=== PATIENT | female | born 1970 | race Caucasian/White ===

== ENCOUNTER 2018-04-25 11:31 | Inpatient (IN) | payer MEDICAID ==
[~2018-04-25] VITALS: Ht 154.9 cm; Wt 110.7 kg
[2018-04-25 11:39] VITALS: BP 126/81
--- NOTE | 2018-04-25 11:44 | NUR ---
pt to chair by triage for further observation. awaiting available bed. notified charge Nabila JETT.
--- NOTE | 2018-04-25 11:53 | NUR ---
PT TO ER BED 11
--- NOTE | 2018-04-25 12:30 | NUR ---
48/ F, bib friend with c/o etoh withdrawal. Last drank yesterday. Patient sts she normally drinks 3 bottles of vodka a day. Shakiness noted. Patient reports being SOB, weakness, breathing is unlabored, respirations shallow, with pain. Denies any cp or auditory/visual hallucinations. Tingling to bl hands and posterior head. Patient has leg pain 8/10 and 10/10 sharp back pain. Vomited blood x2 today, patient reports seeing blood in vomit. Patient aox4, clear speech, steady gait, safety percaution in place.
[2018-04-25] MEDS ORDERED: NACL 0.9% 1,000 ML IV ONE (13:25)
[2018-04-25] MEDS ORDERED: LORazepam 2 MG/ML VIAL IVP ONE (13:25)
[2018-04-25] MEDS ORDERED: ONDANSETRON 4 MG/2 ML VIAL IVP ONE (13:25)
[2018-04-25 13:46] LABS: BASOPHILS # (AUTO) 0.1 K/uL (0.00-0.22); BASOPHILS % (AUTO) 0.9 % (0.0-2.0); EOSINOPHILS # (AUTO) 0.1 K/uL (0-0.4); EOSINOPHILS % (AUTO) 1.2 % (0.0-4.0); HEMATOCRIT 34.6 % (36-48); HEMOGLOBIN 10.9 g/dL (12.0-16.0); LYMPHOCYTES % (AUTO) 15.3 % (20.5-51.1); MEAN CORPUSCULAR HEMOGLOBIN 29 pg (27-31); MEAN CORPUSCULAR HGB CONC 31 g/dL (33-37); MONOCYTES # (AUTO) 0.5 K/uL (0.8-1.0); MONOCYTES % (AUTO) 7.7 % (1.7-9.3); NEUTROPHILS # (AUTO) 4.8 K/uL (1.8-7.7); NEUTROPHILS % (AUTO) 74.9 % (42.2-75.2); PLATELET COUNT (AUTO) 144 K/uL (140-450); RED CELL DISTRIBUTION WIDTH 20.6 % (11.6-13.7); WHITE BLOOD COUNT (AUTO) 6.4 K/uL (4.8-10.8)
[2018-04-25 14:29] LABS: PROTHROMBIN TIME 13.2 secs (10.8-13.4)
[2018-04-25 14:37] LABS: ALBUMIN 2.5 g/dL (3.4-5.0); ANION GAP 10.6 (8-16); CARBON DIOXIDE 31.1 mmol/L (21-32); CREATININE 0.7 mg/dL (0.6-1.3); POTASSIUM 3.7 mmol/L (3.5-5.1); TOTAL BILIRUBIN 1.3 mg/dL (0.0-1.0)
[2018-04-25] MEDS ORDERED: NACL 0.9% 1,000 ML IV SCH (15:15)
[2018-04-25] MEDS ORDERED: DOCUSATE SODIUM 100 MG GELCAP PO PRN (15:15)
[2018-04-25] MEDS ORDERED: ACETAMINOPHEN 325 MG TAB PO PRN (15:15)
[2018-04-25 15:41] LABS: APPEARANCE,URINE CLEAR (CLEAR); BILIRUBIN,URINE NEGATIVE (NEGATIVE); BLOOD, URINE NEGATIVE (NEGATIVE); COLOR,URINE YELLOW (YELLOW); LEUKOCYTE ESTERASE ,URINE NEGATIVE (NEGATIVE); NITRITE, URINE NEGATIVE (NEGATIVE); PH,URINE 8.5 (5.0-9.0); UGLUCOSE NEGATIVE (NEGATIVE)
[2018-04-25 15:42] LABS: RBC,URINE 0-5 (RARE) /HPF (0-5); WBC,URINE 0-5 (RARE) /HPF (0-5)
[2018-04-25 16:14] LABS: BARBITURATE, URINE NEG. ng/ml (NEG <=200); BENZODIAZEPINE, URINE POS. ng/mL (NEG <=200); CANNABINOID, URINE NEG. ng/mL (NEG <=50); COCAINE, URINE NEG. ng/mL (NEG <=300); OPIATE, URINE NEG. ng/mL (NEG <=2000); PHENCYCLIDINE SCREEN,URINE NEG. ng/mL (NEG <=25)
[2018-04-25 16:21] LABS: CHOL/HDL RATIO 2.3 (1-4.5); MAGNESIUM 1.1 mg/dL (1.8-2.4); PHOSPHORUS 3.4 mg/dL (2.5-4.9); THYROID STIMULATING HORMONE 2.4 uIU/mL (0.34-3.74)
--- NOTE | 2018-04-25 16:45 | NUR ---
RECEIVED PT FROM EMERGENCY ROOM NURSE. PT IN STABLE CONDITION. IV INTACT. SAFETY MEASURES IN PLACE. CALL LIGHT AT BEDSIDE. WILL CONTINUE TO MONITOR.
--- NOTE | 2018-04-25 16:45 | NUR ---
Pt report given to RASHMI JETT. Transfer of care at this time.
[2018-04-25] MEDS ORDERED: chlordiazePOXIDE 25 MG CAP PO SCH (17:00)
[2018-04-25] MEDS: HYDROcodone/APAP 5/325 MG 1 TAB TAB PO PRN ×2 (17:09→23:09)
[2018-04-25] MEDS: CYCLOBENZAPRINE 10 MG TAB PO SCH (17:09)
[2018-04-25] MEDS: MAG SULF 2000 MG/WATER PREMIX 50 ML IV SCH ×2 (17:53→20:12)
[2018-04-25] MEDS: LORazepam 1 MG TAB PO SCH ×2 (17:59→23:08)
--- NOTE | 2018-04-25 18:00 | NUR ---
GAVE ORDERED DUE MEDICATIONS. PT TOLERATED WELL. WILL CONTINUE TO MONITOR.
--- NOTE | 2018-04-25 19:20 | NUR ---
GAVE REPORT TO LICENSED MENTAL HEALTH COUNSELOR NURSE FOR CONTINUITY OF CARE. PT IN STABLE CONDITION.
--- NOTE | 2018-04-25 19:21 | NUR ---
REPORT RECEIVED FROM AM NURSE AT BEDSIDE. PT IN STABLE CONDITION. AAOX4. INTRODUCED SELF TO PT. BOARD UPDATED. NO COMPLAINTS OF PAIN. NO SOB. AFEBRILE. IV SITE R FA 22G RUNNING NS@60ML/HR PATENT AND INTACT. SKIN WARM, DRY, AND INTACT WITH NO OPEN WOUNDS. BED LOCKED IN LOW POSITION. CALL HUDSON WITHIN REACH. SAFETY PRECAUTIONS IN PLACE.
[2018-04-25 19:58] VITALS: BP 132/91
[2018-04-25] MEDS: MULTIVITAMIN-12 10 ML, THIAMINE 100 MG, MAGNESIUM SULFATE 50% 2,000 MG, FOLIC ACID 1 MG... IV SCH ×5 (20:00)
--- NOTE | 2018-04-25 20:00 | NUR ---
MAG HUNG AND RUNNING. BANANA BAG HUNG. PT TOLERATING WELL.
[2018-04-25] MEDS: PANTOPRAZOLE 40 MG INJ VIAL IVP SCH (20:33)
--- NOTE | 2018-04-25 20:33 | NUR ---
PROTONIX GIVEN IVP. PT TOLERATED WELL.
[2018-04-25] MEDS ORDERED: LORazepam 1 MG TAB PO SCH (21:00)
--- NOTE | 2018-04-25 23:08 | NUR ---
ATIVAN PO GIVEN. NORCO GIVEN FOR 6/10 PAIN. PT TOLERATED WELL.
[2018-04-26] VITALS: BP 139/88
--- NOTE | 2018-04-26 01:15 | NUR ---
PT HAD COMPLAINTS OF IV LEAKING. TIGHTENED THE IV.
--- NOTE | 2018-04-26 03:30 | NUR ---
PT SLEEPING COMFORTABLY IN BED. NO S/S OF DISTRESS NOTED. RESPIRATIONS EVEN, UNLABORED, AND WNL. WILL CONTINUE TO MONITOR.
--- NOTE | 2018-04-26 04:15 | NUR ---
ADMINISTERED ZOFRAN FOR NAUSEA AND ATIVAN FOR ANXIETY. PT TOLERATED WELL. NO OTHER NEEDS AT THIS TIME. Addendum: 04/26/18 at 1619 by Roula Robins RN ADMINISTERED ZOFRAN FOR NAUSEA AND ATIVAN FOR ANXIETY. PT TOLERATED WELL. NO OTHER NEEDS AT THIS TIME. Addendum: 04/26/18 at 1724 by Roula Robins RN THE 0415 NOTE WAS FOR 1619 AT 04/26/2018. DOCUMENTED AT THE WRONG TIME.
[2018-04-26] MEDS: HYDROcodone/APAP 5/325 MG 1 TAB TAB PO PRN ×2 (05:19→18:05)
[2018-04-26] MEDS: LORazepam 1 MG TAB PO SCH (05:20)
--- NOTE | 2018-04-26 05:20 | NUR ---
ATIVAN AND NORCO GIVEN PO. PT TOLERATED WELL. Addendum: 04/26/18 at 0522 by Dennis Hwang RN 09/11 PAIN.
[2018-04-26 06:26] LABS: HEPATITIS A ANTIBODY IGM Negative (Negative); HEPATITIS B CORE AB TOTAL Negative (Negative); HEPATITIS B SURFACE ANTIBODY Non Reactive (.); HEPATITIS B SURFACE ANTIGEN Negative (Negative)
[2018-04-26 07:15] LABS: CREATININE 0.6 mg/dL (0.6-1.3)
--- NOTE | 2018-04-26 07:19 | NUR ---
REPORT GIVEN TO AM NURSE AT BEDSIDE. PT IN STABLE CONDITION.
--- NOTE | 2018-04-26 07:20 | NUR ---
RECEIVED BEDSIDE REPORT FROM JOHNIE AGUIAR. PT STABLE, AWAKE, AND ALERT. NO SIGNS OF DISTRESS NOTED. DENIES PAIN. NO SEIZURE ACTIVITY NOTED. BED RAILINGS PADDED. NO SWELLING, REDNESS, OR INFLAMMATION NOTED ON IV SITE. PT AWARE OF NPO STATUS. CALL LIGHT WITHIN REACH. BED IN LOW POSITION. SAFETY MEASURES IN PLACE. PLAN OF CARE REVIEWED.
[2018-04-26 07:24] LABS: ANION GAP 6.5 (8-16); CARBON DIOXIDE 31.1 mmol/L (21-32); POTASSIUM 3.6 mmol/L (3.5-5.1)
[2018-04-26 07:35] LABS: BASOPHILS # (AUTO) 0.1 K/uL (0.00-0.22); EOSINOPHILS # (AUTO) 0.3 K/uL (0-0.4); EOSINOPHILS % (AUTO) 5.9 % (0.0-4.0); HEMATOCRIT 30.7 % (36-48); HEMOGLOBIN 9.6 g/dL (12.0-16.0); LYMPHOCYTES # (AUTO) 1.2 K/uL (2.5-16.5); LYMPHOCYTES % (AUTO) 22.8 % (20.5-51.1); MEAN CORPUSCULAR HEMOGLOBIN 29 pg (27-31); MEAN CORPUSCULAR HGB CONC 31 g/dL (33-37); MEAN CORPUSCULAR VOLUME 91.3 fL (80-94); MONOCYTES # (AUTO) 0.4 K/uL (0.8-1.0); MONOCYTES % (AUTO) 7.9 % (1.7-9.3); NEUTROPHILS # (AUTO) 3.2 K/uL (1.8-7.7); NEUTROPHILS % (AUTO) 62.4 % (42.2-75.2); RED BLOOD CELL COUNT(AUTO) 3.36 MIL/uL (4.20-5.40); RED CELL DISTRIBUTION WIDTH 20.5 % (11.6-13.7); WHITE BLOOD COUNT (AUTO) 5.1 K/uL (4.8-10.8)
[2018-04-26 07:43] LABS: PLATELET COUNT (AUTO) 99 K/uL (140-450)
--- NOTE | 2018-04-26 07:45 | NUR ---
DR PLASCENCIA CALLED, PT WILL BE HAVE EGD TODAY, KEEP NPO, OBTAIN CONSENT PER DR PLASCENCIA. WILL UPDATE PT WITH POC.
[2018-04-26 08:00] VITALS: BP 136/97
--- NOTE | 2018-04-26 08:29 | NUR ---
SPOKE WITH DR. PLASCENCIA REGARDING PT'S EGD TODAY. PT HAD ENDOSCOPY IN 2012.
--- NOTE | 2018-04-26 08:36 | NUR ---
PATIENT HAS BEEN SCREENED AND CATEGORIZED HIGH NUTRITION RISK. PATIENT WILL BE SEEN WITHIN 1-2 DAYS OF ADMISSION. 04/26/18-04/27/[address]
[2018-04-26] MEDS: CYCLOBENZAPRINE 10 MG TAB PO SCH ×3 (09:00→18:05)
[2018-04-26] MEDS: FOLIC ACID 1 MG TAB PO SCH (09:00)
[2018-04-26] MEDS: MULTIVITAMIN 1 TAB PO SCH (09:00)
[2018-04-26] MEDS: THIAMINE 100 MG TAB PO SCH (09:00)
[2018-04-26] MEDS: PANTOPRAZOLE 40 MG INJ VIAL IVP SCH ×2 (09:42→20:39)
[2018-04-26] MEDS: OLANZapine 2.5 MG TAB PO SCH (09:43)
[2018-04-26] MEDS: chlordiazePOXIDE 25 MG CAP PO SCH ×2 (09:43→12:57)
--- NOTE | 2018-04-26 09:43 | NUR ---
ADMINISTERED SCHEDULED MEDICATIONS. PT TOLERATED WELL. NO OTHER NEEDS AT THIS TIME.
[2018-04-26] MEDS ORDERED: DEXT 5% /NACL 0.9% 1,000 ML IV SCH (10:05)
--- NOTE | 2018-04-26 10:15 | NUR ---
D/C RIGHT FA IV DUE TO LEAKING. CATHETER TIP INTACT. INSERTED IV ON RIGHT FOREARM 22G, FLUSHES WELL. NO SWELLING, REDNESS, OR INFLAMMATION NOTED ON IV SITE.
[2018-04-26] MEDS ORDERED: fentaNYL 0.05 MG/ML VIAL ONE (10:54)
[2018-04-26] MEDS ORDERED: MIDAZOLAM 2 MG/2 ML VIAL ONE (10:55)
[2018-04-26] MEDS: MIDAZOLAM 2 MG/2 ML VIAL IV ONE ×2 (11:13→11:15)
[2018-04-26] MEDS: fentaNYL 0.05 MG/ML VIAL IVP ONE ×2 (11:14→11:15)
--- NOTE | 2018-04-26 11:45 | NUR ---
PT ARRIVED FROM OR AFTER EGD. PT STABLE, AWAKE, AND ALERT. NO SIGNS OF DISTRESS NOTED.
--- NOTE | 2018-04-26 12:57 | NUR ---
ADMINISTERED SCHEDULED MEDICATIONS. PT TOLERATED WELL. NO OTHER NEEDS AT THIS TIME.
[2018-04-26] MEDS: ONDANSETRON 4 MG/2 ML VIAL IM/IVP PRN (15:59)
[2018-04-26 16:00] VITALS: BP 132/87
[2018-04-26] MEDS: LORazepam 2 MG/ML VIAL IVP PRN ×2 (16:00→20:40)
[2018-04-26] MEDS: NACL 0.9% 1,000 ML IV SCH (16:15)
[2018-04-26] MEDS ORDERED: chlordiazePOXIDE 25 MG CAP PO SCH ×2 (16:15→17:00)
--- NOTE | 2018-04-26 16:19 | NUR ---
ADMINISTERED ZOFRAN FOR NAUSEA AND ATIVAN FOR ANXIETY. PT TOLERATED WELL. NO OTHER NEEDS AT THIS TIME.
--- NOTE | 2018-04-26 17:00 | NUR ---
DR. YEUNG AT THE BEDSIDE.
--- NOTE | 2018-04-26 18:00 | NUR ---
ADMINISTERED SCHEDULED MEDICATIONS AND NORCO FOR BACK PAIN 09/11. PT TOLERATED WELL. NO OTHER NEEDS AT THIS TIME.
--- NOTE | 2018-04-26 19:20 | NUR ---
ENDORSED PT TO JOHNIE MELGOZA FOR CONTINUITY OF CARE. PT STABLE, SLEEPING BUT EASILY AROUSABLE.
--- NOTE | 2018-04-26 19:20 | NUR ---
RECEIVED REPORT FORM DAY SHIFT NURSE AT PT BEDSIDE. PT ASLEEP IN BED BUT EASILY AROUSABLE. PT IS ON RA WITH RESPIRATIONS EVEN AND UNLABORED. IV ACCESS IN R FA 22G WITH IVF RUNNING PER MD ORDERS. IV IS PATENT AND INTACT. PT SKIN IS INTACT. NO C/O PAIN AT THIS TIME. BED IS LOCKED, LOW POSITION WITH SIDE RAILS UP X2. CALL LIGHT IS WITHIN REACH. BOARD UPDATED. WILL CONTINUE TO MONITOR PT.
[2018-04-26] MEDS: MULTIVITAMIN-12 10 ML, THIAMINE 100 MG, MAGNESIUM SULFATE 50% 2,000 MG, FOLIC ACID 1 MG... IV SCH ×5 (19:39)
--- NOTE | 2018-04-26 20:40 | NUR ---
ADMINISTERED SCHEDULED PROTONIX. ATIVAN GIVEN FOR ALCOHOL WITHDRAWAL AND ANXIETY. PT TOLERATED WELL. ALL OTHER NEEDS ARE MET AT THIS TIME. NO SIGNS OR SYMPTOMS OF DISTRESS. WILL CONTINUE TO MONITOR.
[2018-04-27] VITALS: BP 131/86
[2018-04-27] MEDS: NACL 0.9% 1,000 ML IV SCH (02:01)
[2018-04-27] MEDS: HYDROcodone/APAP 5/325 MG 1 TAB TAB PO PRN (02:12)
--- NOTE | 2018-04-27 02:12 | NUR ---
PT C/O PAIN, NORCO GIVEN. ATIVAN GIVEN FOR ALCOHOL WITHDRAWAL AND ANXIETY. PT TOLERATED WELL. NO SIGNS OR SYMPTOMS OF DISTRESS. WILL CONTINUE TO MONITOR.
[2018-04-27] MEDS: LORazepam 2 MG/ML VIAL IVP PRN (02:13)
[2018-04-27 06:18] LABS: BASOPHILS % (AUTO) 0.7 % (0.0-2.0); EOSINOPHILS # (AUTO) 0.3 K/uL (0-0.4); EOSINOPHILS % (AUTO) 5.1 % (0.0-4.0); HEMATOCRIT 28.6 % (36-48); HEMOGLOBIN 9.1 g/dL (12.0-16.0); LYMPHOCYTES # (AUTO) 1.3 K/uL (2.5-16.5); LYMPHOCYTES % (AUTO) 23.7 % (20.5-51.1); MEAN CORPUSCULAR HEMOGLOBIN 29 pg (27-31); MEAN CORPUSCULAR HGB CONC 32 g/dL (33-37); MEAN CORPUSCULAR VOLUME 91.5 fL (80-94); MONOCYTES # (AUTO) 0.5 K/uL (0.8-1.0); MONOCYTES % (AUTO) 8.5 % (1.7-9.3); NEUTROPHILS # (AUTO) 3.3 K/uL (1.8-7.7); PLATELET COUNT (AUTO) 99 K/uL (140-450); RED BLOOD CELL COUNT(AUTO) 3.13 MIL/uL (4.20-5.40); RED CELL DISTRIBUTION WIDTH 20.9 % (11.6-13.7); WHITE BLOOD COUNT (AUTO) 5.3 K/uL (4.8-10.8)
[2018-04-27] MEDS ORDERED: LACTULOSE 20 GM/30 ML UDC PO SCH (06:25)
[2018-04-27] MEDS ORDERED: chlordiazePOXIDE 25 MG CAP PO SCH (06:25)
--- NOTE | 2018-04-27 06:41 | NUR ---
ORDERED LIBRIUM AND LACTULOSE GIVEN. PT TOLERATED WELL. NO SIGNS OR SYMPTOMS OF DISTRESS. WILL CONTINUE TO MONITOR.
--- NOTE | 2018-04-27 07:05 | NUR ---
ENDORSED PT TO DAY SHIFT NURSE FOR CONTINUITY OF CARE. PT IN STABLE CONDITION.
[2018-04-27] MEDS ORDERED: LORazepam 2 MG/ML VIAL IM/IVP PRN (07:25)
--- NOTE | 2018-04-27 07:51 | NUR ---
RECEIVED PT ON BED AAOX4. NO SOB NOTED. NO C/O PAIN AT THIS TIME. IV TO RT HAND PATENT AND INTACT. CHEST CLEAR. ABDOMEN SOFT, BOWEL SOUNDS PRESENT. NO EDEMA NOTED. INSTRUCTED PT TO CALL FOR ASSISTANCE, CALL LIGHT WITHIN REACH, VERBALIZED UNDERSTANDING.
[2018-04-27 07:53] LABS: ANION GAP 12.3 (8-16); CARBON DIOXIDE 27.4 mmol/L (21-32); CREATININE 0.6 mg/dL (0.6-1.3); POTASSIUM 3.7 mmol/L (3.5-5.1)
[2018-04-27 08:00] VITALS: BP 134/77
[2018-04-27] MEDS: PANTOPRAZOLE 40 MG INJ VIAL IVP SCH ×2 (09:04→20:24)
[2018-04-27] MEDS: FOLIC ACID 1 MG TAB PO SCH (09:06)
[2018-04-27] MEDS: CYCLOBENZAPRINE 10 MG TAB PO SCH ×3 (09:06→17:48)
[2018-04-27] MEDS: THIAMINE 100 MG TAB PO SCH (09:07)
[2018-04-27] MEDS: MULTIVITAMIN 1 TAB PO SCH (09:07)
[2018-04-27] MEDS: OLANZapine 2.5 MG TAB PO SCH ×2 (09:08→17:48)
[2018-04-27] MEDS: MORPHINE SULFATE 2 MG/ML SYR IVP PRN ×3 (09:08→17:46)
--- NOTE | 2018-04-27 11:43 | NUR ---
04/27/18 RD INITIAL ASSESSMENT COMPLETED PLEASE REFER TO NUTRITION ASSESSMENT UNDER CARE ACTIVITY FOR ESTIMATED NUTRITIONAL NEEDS. 1. CONTINUE REGULAR DIET TOLERATED 2. RD TO FOLLOW UP ON ADEQUATE PO INTAKE 3. RD TO FOLLOW-UP 5-7 DAYS, LOW RISK FATEMEH CHAUDHARI, RD
--- NOTE | 2018-04-27 13:49 | NUR ---
PT SEEN BY DR. BECERRA WITH NEW ORDERS.
[2018-04-27 16:00] VITALS: BP 129/82
--- NOTE | 2018-04-27 16:15 | NUR ---
PT AMBULATING AROUND THE ROOM, ACTIVITY TOLERATED WELL.
[2018-04-27] MEDS: ONDANSETRON 4 MG/2 ML VIAL IM/IVP PRN (17:44)
[2018-04-27] MEDS ORDERED: LORazepam 1 MG TAB PO SCH (18:00)
--- NOTE | 2018-04-27 19:09 | NUR ---
PT AWAKE, WATCHING TV. NO SOB NOTED. NO SIGNS OF PAIN. WILL ENDORSE TO NEXT SHIFT NURSE FOR CONTINUITY OF CARE.
--- NOTE | 2018-04-27 19:10 | NUR ---
RECEIVED REPORT FROM DAY SHIFT NURSE AT PT BEDSIDE. PT ASLEEP IN BED BUT EASILY AROUSABLE. PT IS ON RA WITH RESPIRATIONS EVEN AND UNLABORED. IV ACCESS IN R FA 22G SALINE LOCKED. IV IS PATENT AND INTACT. PT SKIN IS INTACT. NO C/O PAIN AT THIS TIME. BED IS LOCKED, LOW POSITION WITH SIDE RAILS UP X2. CALL LIGHT IS WITHIN REACH. BOARD UPDATED. WILL CONTINUE TO MONITOR PT.
--- NOTE | 2018-04-27 20:24 | NUR ---
ADMINISTERED SCHEDULED MEDICATION. PT SLEEPING IN BED COMFORTABLY. NO SIGNS OR SYMPTOMS OF DISTRESS. WILL CONTINUE TO MONITOR.
[2018-04-28] VITALS: BP 133/90
[2018-04-28] MEDS: MORPHINE SULFATE 2 MG/ML SYR IVP PRN ×3 (02:26→10:14)
--- NOTE | 2018-04-28 02:26 | NUR ---
PT C/O PAIN, MORPHINE GIVEN. PT TOLERATED WELL. NO SIGNS OR SYMPTOMS OF DISTRESS. WILL CONTINUE TO MONITOR.
--- NOTE | 2018-04-28 05:49 | NUR ---
OB SAMPLE COLLECTED. LAB AT BEDSIDE DRAWING LABS.
[2018-04-28] MEDS ORDERED: traZODone 50 MG TAB PO PRN ×2 (06:00→07:21)
[2018-04-28 06:38] LABS: BASOPHILS # (AUTO) 0.1 K/uL (0.00-0.22); BASOPHILS % (AUTO) 0.9 % (0.0-2.0); EOSINOPHILS # (AUTO) 0.2 K/uL (0-0.4); EOSINOPHILS % (AUTO) 3.6 % (0.0-4.0); HEMATOCRIT 32.1 % (36-48); HEMOGLOBIN 9.9 g/dL (12.0-16.0); LYMPHOCYTES # (AUTO) 1.4 K/uL (2.5-16.5); LYMPHOCYTES % (AUTO) 23.9 % (20.5-51.1); MEAN CORPUSCULAR HEMOGLOBIN 29 pg (27-31); MEAN CORPUSCULAR HGB CONC 31 g/dL (33-37); MEAN CORPUSCULAR VOLUME 92.4 fL (80-94); MONOCYTES # (AUTO) 0.6 K/uL (0.8-1.0); MONOCYTES % (AUTO) 9.7 % (1.7-9.3); NEUTROPHILS # (AUTO) 3.6 K/uL (1.8-7.7); NEUTROPHILS % (AUTO) 61.9 % (42.2-75.2); PLATELET COUNT (AUTO) 84 K/uL (140-450); RED BLOOD CELL COUNT(AUTO) 3.48 MIL/uL (4.20-5.40); RED CELL DISTRIBUTION WIDTH 21.1 % (11.6-13.7); WHITE BLOOD COUNT (AUTO) 5.8 K/uL (4.8-10.8)
--- NOTE | 2018-04-28 06:48 | NUR ---
PT C/O PAIN MORPHINE GIVEN. PT TOLERATED WELL. NO SIGNS OR SYMPTOMS OF DISTRESS. WILL CONTINUE TO MONITOR.
[2018-04-28 06:57] LABS: CREATININE 0.7 mg/dL (0.6-1.3)
--- NOTE | 2018-04-28 07:15 | NUR ---
ENDORSED PT TO DAY SHIFT NURSE FOR CONTINUITY OF CARE. PT IN STABLE CONDITION.
--- NOTE | 2018-04-28 07:16 | NUR ---
RECEIVED BEDSIDE REPORT FROM DATA TYPIST NURSE. PATIENT AAOX4. PATIENT ON ROOM AIR, NO DISTRESS NOTED. SKIN INTACT. PATIENT AMBULATORY AND CONTINENT. PATIENT ON STANDARD ISO. PATIENT ON MED SURG. IV ON R FA22 G SALINE LOCK, IV CLEAN DRY AND INTACT. BED IN LOW POSITION, CALL LIGHT WITHIN REACH. WILL CONTINUE TO MONITOR.
[2018-04-28] MEDS ORDERED: FLUO-348 PO (07:54)
[2018-04-28] MEDS ORDERED: OXYC5CAP26 PO (07:54)
[2018-04-28] MEDS ORDERED: PANT40PD7 PO (07:54)
[2018-04-28] MEDS ORDERED: MULT-405 PO (07:54)
[2018-04-28] MEDS ORDERED: OLAN2.5T40 PO (07:54)
[2018-04-28] MEDS ORDERED: TRAZ-370 PO (07:54)
[2018-04-28 08:00] VITALS: BP 137/94
[2018-04-28] MEDS: LACTULOSE 20 GM/30 ML UDC PO SCH ×2 (08:46→14:15)
[2018-04-28] MEDS: CYCLOBENZAPRINE 10 MG TAB PO SCH ×2 (08:46→14:14)
[2018-04-28] MEDS: THIAMINE 100 MG TAB PO SCH (08:47)
[2018-04-28] MEDS: MULTIVITAMIN 1 TAB PO SCH (08:48)
[2018-04-28] MEDS: FOLIC ACID 1 MG TAB PO SCH (08:48)
[2018-04-28] MEDS: PANTOPRAZOLE 40 MG INJ VIAL IVP SCH (08:49)
[2018-04-28] MEDS: OLANZapine 2.5 MG TAB PO SCH (08:49)
[2018-04-28] MEDS ORDERED: FLUoxetine 20 MG CAP PO SCH (09:00)
--- NOTE | 2018-04-28 09:30 | NUR ---
ADMINISTERED SCHEDULED MEDS. PATIENT TOLERATED WELL. WILL CONTINUE TO MONITOR.
--- NOTE | 2018-04-28 15:00 | NUR ---
EDUCATED PATIENT ON DISCHARGE INSTRUCTIONS. EDUCATED ON MEDICATIONS AND SIDE EFFECTS. INSTRUCTED PATIENT TO RETURN TO NEAREST ER WHEN EXPERIENCING SOB, FEVER, VOMITING, OR WORSENING OF SYMPTOMS. REMOVED IV, TIP INTACT AND REMOVED WRIST BANDS. PROVIDED PATIENT WITH PRESCRIPTIONS FROM DOCTOR AND PACKET OF MEDICAL RECORDS FROM [facility]. ANSWERED ALL QUESTIONS AND CONCERNS OF PATIENT. PATIENT VERBALIZED UNDERSTANDING.
--- NOTE | 2018-05-01 14:18 | NUR ---
1407 RECEIVED A CALL FROM PATIENT AND SHE STATED THAT HER PHARMACY [facility] SAID THEY DID NOT RECEIVE THE RX FOR ZYPREXA OR ORLANZAPINE. INFORMED HER WILL SPEAK WITH DR DAVIS WHO WAS THE ATTENDING RESIDENT WHEN SHE DISCHARGED. PROVIDED DR GEE WITH [facility] PHONE NUMBER AND SHE WILL FOLLOW UP.
== END 2018-04-28 15:03 | DRG 242 ==
LOC: MED 11:31 → MTU 15:11
PROVIDERS: ADMIT General Practice; ATTEND General Practice
PROC: 0DJ08ZZ Inspection of Upper Intestinal Tract, Via Natural or Artificial Opening Endoscopic (ICD-10-PCS; principal; 2018-04-26 11:00)
DX: K22.6 Gastro-esophageal laceration-hemorrhage syndrome (principal); E43 Unspecified severe protein-calorie malnutrition; G92 Toxic encephalopathy; K70.30 Alcoholic cirrhosis of liver without ascites; F20.9 Schizophrenia, unspecified; E83.42 Hypomagnesemia; K92.2 Gastrointestinal hemorrhage, unspecified; Z68.42 Body mass index [BMI] 45.0-49.9, adult; F43.10 Post-traumatic stress disorder, unspecified; X58.XXXA Exposure to other specified factors, initial encounter; F19.10 Other psychoactive substance abuse, uncomplicated; D64.9 Anemia, unspecified; F31.9 Bipolar disorder, unspecified; Z98.84 Bariatric surgery status; Z59.0 Homelessness; F10.239 Alcohol dependence with withdrawal, unspecified; Y90.9 Presence of alcohol in blood, level not specified; F41.9 Anxiety disorder, unspecified; Z91.19 Patient's noncompliance with other medical treatment and regimen
CPT/HCPCS: 36415; 71045; 76700; 80048; 80053; 80305; 81001; 82140; 82272; 83036; 83690; 83735; 84100; 84134; 84443; 84484; 85025; 85610; 86704; 86706; 86708; 86709; 86803; 87081; 87340; 93925; 93970; 96361; 96374; 96375; 99285; A9153; C9113; G0482; J2060; J2250; J2270; J2405; J3010; J3411; J3475; J3490; J7030; J7042; Q0092

== ENCOUNTER 2018-06-30 16:10 | Emergency (ER) | payer MEDICAID ==
[~2018-06-30] VITALS: Ht 157.5 cm; Wt 104.3 kg
[~2018-06-30 16:10] MED LIST: FLUO-348 PO; MULT-405 PO; OLAN2.5T40 PO; OXYC5CAP26 PO; PANT40PD7 PO; TRAZ-466 PO
--- NOTE | 2018-06-30 16:23 | NUR ---
pt taken in wheelchair to er bed 01
--- NOTE | 2018-06-30 16:30 | NUR ---
PT PRESENTED TO THE ED WITH THE CHIEF C/O ALCOHOL AND METH WITHDRAWAL SINCE THIS MORNING. A/O X4 AT THIS TIME. PER PT SHE HAD SMOKED METH 2 DAYS AGO AND DRANK ALCOHOL LAST NIGHT. PT WAS UNDER CARE OF [facility]. AGITATED AT THIS TIME. STATES GENERALIZED BODY PAIN OF 10/10 AT THIS TIME. VSS. ER AWARE.
[2018-06-30] MEDS ORDERED: NACL 0.9% 1,000 ML IV ONE (16:35)
[2018-06-30] MEDS ORDERED: LORazepam 2 MG/ML VIAL IVP ONE ×2 (16:35→18:00)
[2018-06-30 17:17] LABS: BASOPHILS # (AUTO) 0.1 K/uL (0.00-0.22); EOSINOPHILS # (AUTO) 0.1 K/uL (0-0.4); EOSINOPHILS % (AUTO) 1.8 % (0.0-4.0); HEMATOCRIT 35.9 % (36-48); HEMOGLOBIN 11.8 g/dL (12.0-16.0); LYMPHOCYTES # (AUTO) 1.8 K/uL (2.5-16.5); MEAN CORPUSCULAR HEMOGLOBIN 30 pg (27-31); MEAN CORPUSCULAR HGB CONC 33 g/dL (33-37); MEAN CORPUSCULAR VOLUME 90.6 fL (80-94); MONOCYTES # (AUTO) 0.7 K/uL (0.8-1.0); MONOCYTES % (AUTO) 9.3 % (1.7-9.3); NEUTROPHILS # (AUTO) 4.6 K/uL (1.8-7.7); NEUTROPHILS % (AUTO) 62.9 % (42.2-75.2); PLATELET COUNT (AUTO) 125 K/uL (140-450); RED BLOOD CELL COUNT(AUTO) 3.96 MIL/uL (4.20-5.40); RED CELL DISTRIBUTION WIDTH 17.4 % (11.6-13.7); WHITE BLOOD COUNT (AUTO) 7.3 K/uL (4.8-10.8)
[2018-06-30 17:28] LABS: ANION GAP 21.3 (8-16); CARBON DIOXIDE 18.9 mmol/L (21-32); CREATININE 0.8 mg/dL (0.6-1.3); POTASSIUM 3.2 mmol/L (3.5-5.1)
[2018-06-30 17:35] LABS: ALBUMIN 3.2 g/dL (3.4-5.0); TOTAL BILIRUBIN 1.3 mg/dL (0.0-1.0)
--- NOTE | 2018-06-30 17:51 | NUR ---
PT BEING SEEN BY ER AT THIS TIME.
[2018-06-30 18:18] LABS: APPEARANCE,URINE HAZY (CLEAR); BILIRUBIN,URINE 2+ (NEGATIVE); BLOOD, URINE NEGATIVE (NEGATIVE); COLOR,URINE AMBER (YELLOW); LEUKOCYTE ESTERASE ,URINE 2+ (NEGATIVE); NITRITE, URINE NEGATIVE (NEGATIVE); UGLUCOSE NEGATIVE (NEGATIVE)
[2018-06-30 18:23] LABS: BARBITURATE, URINE NEG. ng/ml (NEG <=200); BENZODIAZEPINE, URINE POS. ng/mL (NEG <=200); CANNABINOID, URINE NEG. ng/mL (NEG <=50); COCAINE, URINE NEG. ng/mL (NEG <=300); OPIATE, URINE NEG. ng/mL (NEG <=2000); PHENCYCLIDINE SCREEN,URINE NEG. ng/mL (NEG <=25)
[2018-06-30 18:38] LABS: RBC,URINE 0-5 /HPF (0-5)
[2018-06-30 18:39] LABS: URINE AMORPHOUS URATE 3+ /HPF (None Seen)
[2018-06-30 18:58] VITALS: BP 119/60
--- NOTE | 2018-06-30 18:58 | NUR ---
Patient discharged with v/s stable. Written and verbal after care instructions given and explained. Patient alert, oriented and verbalized understanding of instructions. Ambulatory with steady gait. All questions addressed prior to discharge. ID band removed. Patient advised to follow up with PMD. Rx of ativan and keflex given. Patient educated on indication of medication including possible reaction and side effects. Opportunity to ask questions provided and answered.
== END 2018-06-30 18:58 | disposition home or self-care (01) ==
LOC: MED 16:10
DX: F10.239 Alcohol dependence with withdrawal, unspecified (principal); F15.10 Other stimulant abuse, uncomplicated; N39.0 Urinary tract infection, site not specified; I10 Essential (primary) hypertension; Z79.899 Other long term (current) drug therapy
CPT/HCPCS: 36415; 80053; 80305; 81001; 81025; 85025; 87086; 93005; 96374; 96376; 99284; G0482; J2060; J7030

== ENCOUNTER 2020-10-21 22:00 | Emergency (ER) | payer MEDICAID ==
[~2020-10-21] VITALS: Ht 157.5 cm; Wt 77.1 kg
[~2020-10-21 22:00] MED LIST changes: -FLUO-348 PO; +FLUO20CA33 PO
[2020-10-21 22:28] VITALS: BP 156/99
--- NOTE | 2020-10-21 22:28 | NUR ---
PT TAKEN TO BED 9
--- NOTE | 2020-10-21 22:31 | NUR ---
Dr. Muhammad examining patient.
[2020-10-21] MEDS ORDERED: diphenhydrAMINE 50 MG/ML VIAL IM ONE (22:35)
[2020-10-21] MEDS ORDERED: PROCHLORPERAZINE 10 MG/2 ML VIAL IM ONE (22:35)
[2020-10-21] MEDS ORDERED: HALOPERIDOL IM 5 MG/ML VIAL ONE (22:35)
[2020-10-21] MEDS ORDERED: diphenhydrAMINE 50 MG/ML VIAL ONE (22:35)
[2020-10-21] MEDS ORDERED: HALOPERIDOL IM 5 MG/ML VIAL IM ONE (22:35)
[2020-10-21] MEDS ORDERED: LORazepam 2 MG/ML VIAL ONE (22:36)
[2020-10-21] MEDS ORDERED: NACL 0.9% 1,000 ML IV ONE (22:40)
[2020-10-21] MEDS ORDERED: NACL 0.9% 2,000 ML IV ONE (22:40)
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
--- NOTE | 2020-10-21 22:52 | NUR ---
Dr. Quezada examining patient.
[2020-10-21] MEDS ORDERED: LORazepam 2 MG/ML VIAL IM ONE (23:05)
[2020-10-21 23:16] LABS: BARBITURATE, URINE NEGATIVE ng/ml (NEG <=200); BENZODIAZEPINE, URINE NEGATIVE ng/mL (NEG <=200); CANNABINOID, URINE NEGATIVE ng/mL (NEG <=50); COCAINE, URINE NEGATIVE ng/mL (NEG <=300); OPIATE, URINE NEGATIVE ng/mL (NEG <=2000); PHENCYCLIDINE SCREEN,URINE NEGATIVE ng/mL (NEG <=25)
[2020-10-21 23:40] LABS: BASOPHILS # (AUTO) 0.1 K/uL (0.00-0.22); EOSINOPHILS # (AUTO) 0.1 K/uL (0-0.4); EOSINOPHILS % (AUTO) 1.4 % (0.0-4.0); HEMATOCRIT 30.5 % (36-48); HEMOGLOBIN 9.9 g/dL (12.0-16.0); LYMPHOCYTES # (AUTO) 2.6 K/uL (2.5-16.5); LYMPHOCYTES % (AUTO) 55.2 % (20.5-51.1); MEAN CORPUSCULAR HEMOGLOBIN 28 pg (27-31); MEAN CORPUSCULAR HGB CONC 32 g/dL (33-37); MONOCYTES # (AUTO) 0.6 K/uL (0.8-1.0); MONOCYTES % (AUTO) 12.5 % (1.7-9.3); NEUTROPHILS # (AUTO) 1.4 K/uL (1.8-7.7); NEUTROPHILS % (AUTO) 28.9 % (42.2-75.2); PLATELET COUNT (AUTO) 220 K/uL (140-450); RED CELL DISTRIBUTION WIDTH 20.3 % (11.6-13.7); WHITE BLOOD COUNT (AUTO) 4.7 K/uL (4.8-10.8)
[2020-10-22 00:20] LABS: ANION GAP 13.2 (8-16); CARBON DIOXIDE 24.2 mmol/L (21-32); POTASSIUM 3.4 mmol/L (3.5-5.1)
[2020-10-22 00:21] LABS: ALBUMIN 3.2 g/dL (3.4-5.0); CREATININE 0.7 mg/dL (0.6-1.3); TOTAL BILIRUBIN 0.3 mg/dL (0.0-1.0)
[2020-10-22 00:35] LABS: ACETAMINOPHEN < 0.5 ug/ml (10-30); SALICYLATE < 2.8 mg/dL (2.8-20.0)
--- NOTE | 2020-10-22 04:15 | NUR ---
PT AMBULATED TO RESTROOM AND BACK TO BED
--- NOTE | 2020-10-22 04:15 | NUR ---
ROAD TESTING. TOLERATED WELL. ABLE TO AMBULATE WITH STEADY GAIT
[2020-10-22 05:30] VITALS: BP 156/99
--- NOTE | 2020-10-22 05:30 | NUR ---
Patient discharged with v/s stable. Written and verbal after care instructions given and explained. Patient verbalized understanding. Ambulatory with steady gait. ID band removed. All questions addressed prior to discharge. Advised to follow up with PMD.
== END 2020-10-22 05:30 | disposition home or self-care (01) ==
LOC: MED 22:00
DX: S09.90XA Unspecified injury of head, initial encounter (principal); F10.129 Alcohol abuse with intoxication, unspecified; R41.82 Altered mental status, unspecified; R45.1 Restlessness and agitation; I10 Essential (primary) hypertension; Z79.899 Other long term (current) drug therapy; W01.198A Fall on same level from slipping, tripping and stumbling with subsequent striking against other object, initial encounter; Y93.89 Activity, other specified; Y92.811 Bus as the place of occurrence of the external cause; Y99.8 Other external cause status
CPT/HCPCS: 36415; 80053; 80305; 85025; 96360; 96361; 96372; 99284; G0480; G0482; J1200; J1630; J2060; J7030